=== PATIENT | female | born 1945 | race Two or more races ===

== ENCOUNTER 2019-02-06 18:40 | Emergency (ER) | payer MEDICARE, OTHER ==
[~2019-02-06] VITALS: Ht 149.9 cm; Wt 59.4 kg
[~2019-02-06 18:40] MED LIST: DONNATAL TAB1 TAB ORAL; LASIX40 MG ORAL; LYRICA50 MG ORAL; POTASSIUM CHLO10 MEQ ORAL; PROTONIX40 MG ORAL; TRAMADOL HCL50 MG ORAL; UNOBMED; ZANTAC150 MG ORAL
[2019-02-06] MEDS ORDERED: UNOBMED (18:50)
--- NOTE | 2019-02-06 19:08 | NUR ---
ED Nurse Note: pt walked in due left leg pain and swelling, pt stated she slipped and fell 8 days ago, denies hitting head. pt is in pain. left leg swollen and has hematoma, pt has hx of htn and was compliant. ermd on bedside. will continue to monitor.
--- NOTE | 2019-02-06 19:14 | NUR ---
HAND-OFF: Report given to Meena GLOVER.
--- NOTE | 2019-02-06 19:23 | Emergency Room Report ---
History of Present Illness General Chief Complaint: Lower Extremity Injury Source: Patient Present Illness HPI 73-year-old female presents with left lower extreme swelling since 6 days prior to arrival patient reports hitting her left leg at [place], she had swelling, pain with movement aching nature mild severity alleviated with rest, no fevers chills chest pain shortness of breath patient was sent in by PCP evaluation patient was able to ambulate into the ED. Allergies: Coded Allergies: No Known Allergies (Unverified , 06/05/13) Patient History Past Medical History: see triage record Last Menstrual Period: na Reviewed Nursing Documentation: PMH: Agreed; PSxH: Agreed Nursing Documentation-PMH Past Medical History: No History, Except For Hx Cardiac Problems: No - ARTHRITIS Hx Hypertension: Yes Hx Cancer: No Hx Gastrointestinal Problems: No Hx Neurological Problems: Yes Hx Syncope: Yes Hx Weakness: Yes Hx Fatigue: Yes Review of Systems All Other Systems: negative except mentioned in HPI Physical Exam Vital Signs Date Time Temp Pulse Resp B/P (MAP) Pulse Ox O2 Delivery O2 Flow Rate FiO2 02/06/19 18:42 98.4 66 20 122/70 (87) 95 Room Air Sp02 EP Interpretation: reviewed, normal General Appearance: well appearing, no apparent distress, alert Head: normocephalic, atraumatic Eyes: bilateral eye PERRL, bilateral eye EOMI ENT: uvula midline, moist mucus membranes Neck: supple, thyroid normal, supple/symm/no masses Respiratory: lungs clear, no respiratory distress, no retraction, no accessory muscle use Cardiovascular #1: normal peripheral pulses, regular rate, rhythm, no edema, no gallop, no murmur Gastrointestinal: non tender, soft, no guarding, no rebound Musculoskeletal: normal inspection, other - Left lower extremity: 2+ PT DP, left calf is swollen tender to palpation, there is ecchymosis on the anterior hernandez no palpable deformity Neurologic: alert, oriented x3 Psychiatric: mood/affect normal Skin: no rash, warm/dry Medical Decision Making Diagnostic Impression: Primary Impression: Injury of lower extremity Qualified Codes: S89.92XA - Unspecified injury of left lower leg, initial encounter ER Course 73-year-old female presents with contusion to the left lower extremity, low suspicion for DVT, low suspicion for cellulitis no erythema, most likely swelling secondary to contusion Chest x-ray negative DVT ultrasound negative tib-fib negative labs negative Counseled patient on rest ice elevation Will disposition patient home with return precautions Laboratory Tests Test 02/06/19 19:34 White Blood Count 7.4 K/UL (4.8-10.8) Red Blood Count 3.64 M/UL (4.20-5.40) L Hemoglobin 10.7 G/DL (12.0-16.0) L Hematocrit 31.6 % (37.0-47.0) L Mean Corpuscular Volume 87 FL (80-99) Mean Corpuscular Hemoglobin 29.3 PG (27.0-31.0) Mean Corpuscular Hemoglobin Concent 33.7 G/DL (32.0-36.0) Red Cell Distribution Width 12.3 % (11.6-14.8) Platelet Count 223 K/UL (150-450) Mean Platelet Volume 5.8 FL (6.5-10.1) L Neutrophils (%) (Auto) 65.8 % (45.0-75.0) Lymphocytes (%) (Auto) 21.3 % (20.0-45.0) Monocytes (%) (Auto) 9.0 % (1.0-10.0) Eosinophils (%) (Auto) 3.0 % (0.0-3.0) Basophils (%) (Auto) 0.9 % (0.0-2.0) Sodium Level 149 MMOL/L (136-145) H Potassium Level 4.1 MMOL/L (3.5-5.1) Chloride Level 112 MMOL/L (98-107) H Carbon Dioxide Level 27 MMOL/L (21-32) Anion Gap 10 mmol/L (5-15) Blood Urea Nitrogen 26 mg/dL (7-18) H Creatinine 0.8 MG/DL (0.55-1.30) Estimate Glomerular Filtration Rate mL/min (>60) Glucose Level 99 MG/DL (74-106) Calcium Level 8.6 MG/DL (8.5-10.1) Total Bilirubin 0.4 MG/DL (0.2-1.0) Aspartate Amino Transferase (AST) 14 U/L (15-37) L Alanine Aminotransferase (ALT) 19 U/L (12-78) Alkaline Phosphatase 92 U/L (46-116) Total Creatine Kinase 55 U/L (26-308) Creatine Kinase MB 0.7 NG/ML (0.0-3.6) Creatine Kinase MB Relative Index 1.2 Troponin I 0.004 ng/mL (0.000-0.056) Total Protein 7.0 G/DL (6.4-8.2) Albumin 3.3 G/DL (3.4-5.0) L Globulin 3.7 g/dL Albumin/Globulin Ratio 0.9 (1.0-2.7) L EKG Diagnostic Results EKG Time: 19:16 EP Interpretation: sinus bradycardia, rate 59, QTc 415, no acute ST elevations , normal axis Rate: bradycardiac Other X-Ray Diagnostic Results Other X-Ray Diagnostic Results : X-Ray ordered: Tibia-fibula # of Views/Limited Vs Complete: 2 View Indication: Pain EP Interpretation: Yes Interpretation: other - Soft tissue swelling noted Impression: Other - Soft tissue swelling noted no fracture Electronically Signed by: Saurabh Bergman MD CT/MRI/US Diagnostic Results CT/MRI/US Diagnostic Results : Impression Ultrasound DVT negative per teleradiology Last Vital Signs Date Time Temp Pulse Resp B/P (MAP) Pulse Ox O2 Delivery O2 Flow Rate FiO2 02/06/19 18:42 98.4 66 20 122/70 (87) 95 Room Air Disposition: HOME, SELF-CARE Condition: Stable Scripts Naproxen* (NAPROSYN*) 250 Mg Tablet 250 MG ORAL BID PRN for For Pain, #20 TAB 0 Refills Prov: Saurabh Bergman MD 02/06/19 Referrals: [facility] Patient Instructions: Contusion, [id number], Hematoma, [id number] Additional Instructions: The patient was provided with discharge instructions, notified to follow-up with a primary care doctor and or specialist in the next 24-48 hours, and to return to the ED if they have worsening of their symptoms. Please note that this report is being documented using [employer] technology. This can lead to erroneous entry secondary to incorrect interpretation by the dictating instrument. Saurabh Bergman MD Feb 06, 2019 19:23
[2019-02-06 19:57] LABS: BASOPHILS % (AUTO) 0.9 % (0.0-2.0); HEMATOCRIT 31.6 % (37.0-47.0); HEMOGLOBIN 10.7 G/DL (12.0-16.0); LYMPHOCYTES % (AUTO) 21.3 % (20.0-45.0); MEAN CORPUSCULAR VOLUME 87 FL (80-99); NEUTROPHILS % (AUTO) 65.8 % (45.0-75.0); PLATELET COUNT 223 K/UL (150-450); RED BLOOD COUNT 3.64 M/UL (4.20-5.40); RED CELL DISTRIBUTION WIDTH 12.3 % (11.6-14.8); WHITE BLOOD COUNT 7.4 K/UL (4.8-10.8)
--- NOTE | 2019-02-06 20:02 | NUR ---
ED Nurse Note: Patient currently undergoing duplex of the left lower extremity. Son at bedside.
[2019-02-06 20:04] LABS: BLOOD UREA NITROGEN 26 mg/dL (7-18); CALCIUM 8.6 MG/DL (8.5-10.1); CARBON DIOXIDE 27 MMOL/L (21-32); CHLORIDE 112 MMOL/L (98-107); CREATININE 0.8 MG/DL (0.55-1.30); POTASSIUM 4.1 MMOL/L (3.5-5.1); SODIUM 149 MMOL/L (136-145)
[2019-02-06 20:11] LABS: ALANINE AMINOTRANSFERASE 19 U/L (12-78); ALBUMIN 3.3 G/DL (3.4-5.0); ALBUMIN/GLOBULIN RATIO 0.9 (1.0-2.7); ALKALINE PHOSPHATASE 92 U/L (46-116); ANION GAP 10 mmol/L (5-15); ASPARTATE AMINO TRANSFERASE 14 U/L (15-37); BILIRUBIN,TOTAL 0.4 MG/DL (0.2-1.0); CKMB 0.7 NG/ML (0.0-3.6); CREATINE KINASE 55 U/L (26-308)
[2019-02-06 21:40] VITALS: BP 162/63
[2019-02-06] MEDS ORDERED: NAPROXEN250 MG ORAL (21:48)
--- NOTE | 2019-02-06 21:58 | NUR ---
ED Nurse Note: Patient cleared for discharge ID band removed, IV removed. Patient verbalized understanding of discharge instructions. Patient departed with all belongings accompanied by her nephew.
[2019-02-06 21:59] VITALS: BP 162/63
--- NOTE | 2019-02-07 00:14 | Diagnostic Imaging Report ---
Indication: Reason For Exam: DVT Technique: Walters scale duplex images of the left lower extremity veins Comparison: none Findings: Grayscale and duplex images of the left lower extremity veins demonstrate no evidence of intraluminal thrombus. Normal phasic Doppler waveforms, normal augmentation response. Note that the peroneal veins cannot be visualized. Normal compressibility Impression: Negative for evidence of lower extremity venous thrombosis This agrees with the preliminary interpretation provided overnight by [facility] teleradiology service.
--- NOTE | 2019-02-07 11:29 | Cardiology Report ---
APPROVED REPORT EKG Measurement Heart [id number] IL [id number] Sinus bradycardia Minimal voltage criteria for LVH, may be normal variant Borderline ECG
--- NOTE | 2019-02-07 11:32 | Diagnostic Imaging Report ---
Indication: Chest pain Technique: One view of the chest Comparison: 06/13/2013 Findings: No acute infiltrates, effusions, or congestion. Tortuous calcified aorta. Normal heart size. Upper mediastinum unremarkable. No significant change Impression: No acute process.
--- NOTE | 2019-02-07 11:35 | Diagnostic Imaging Report ---
Indication: Pain and swelling Technique: 2 views of the left tibia and fibula Comparison: none Findings: No acute fractures. No dislocations. The joint spaces are preserved. Impression: No acute process
== END 2019-02-06 22:00 | disposition home or self-care (01) ==
LOC: EMR 19:05
DX: S89.92XA Unspecified injury of left lower leg, initial encounter (principal); M19.90 Unspecified osteoarthritis, unspecified site; I10 Essential (primary) hypertension; R00.1 Bradycardia, unspecified; R60.0 Localized edema; W22.8XXA Striking against or struck by other objects, initial encounter; Y92.22 Religious institution as the place of occurrence of the external cause
CPT/HCPCS: 36415; 71045; 80053; 82550; 82553; 84484; 85025; 93005; 93971; 99284